=== PATIENT | male | born 1995 | race African-American/Black ===

== ENCOUNTER 2024-12-10 01:39 | Emergency (ER) | payer SELFPAY ==
[~2024-12-10] VITALS: Ht 172.7 cm; Wt 98.5 kg
[2024-12-10 01:44] VITALS: O2SAT 99
[2024-12-10] MEDS: METOCLOPRAMIDE HCL 10MG TABLET PO ONE (02:55)
[2024-12-10] MEDS: ACETAMINOPHEN 500MG TABLET PO ONE (02:55)
[2024-12-10 03:07] LABS: BASOPHILS % 0.9 % (0.0-2.0); EOSINOPHILS % 0.2 % (0.0-5.0); HEMATOCRIT. 46.7 % (42.0-52.0); HEMOGLOBIN. 15.2 g/dL (14.0-18.0); LYMPHOCYTES % 22.7 % (20.0-50.0); MEAN PLATELET VOLUME 10.6 fl (7.4-10.4); MONOCYTES % 8.1 % (2.0-8.0); NEUTROPHILS % 68.1 % (40.0-76.0); PLATELET 265 x1000/uL (130-400); RED BLOOD CELL COUNT 5.58 mill/uL (4.7-6.1); RED CELL DISTRIBUTION WIDTH 12.5 % (11.6-14.6)
[2024-12-10 03:18] LABS: CREATININE 1.2 mg/dL (0.6-1.3); UREA NITROGEN BLOOD 7 mg/dL (9-23)
[2024-12-10 03:19] LABS: TROPONIN I HIGH SENSITIVITY 6 ng/L (3.0-53)
[2024-12-10 03:20] LABS: ASPARTATE AMINOTRANSFERASE 19 IU/L (<34); BILIRUBIN DIRECT 0.5 mg/dL (<=3.0); BILIRUBIN TOTAL 1.7 mg/dL (0.1-1.0)
[2024-12-10 03:21] LABS: PROTEIN TOTAL 8.4 g/dL (6.0-8.3)
[2024-12-10] MEDS ORDERED: NAPR-1176 MT (04:06)
[2024-12-10 04:29] VITALS: BP 139/83; PULSE 94; RESP 18; TEMP 36.7; O2SAT 97
== END 2024-12-10 04:30 | disposition home or self-care (01) ==
LOC: ER 01:39
DX: R07.89 Other chest pain (principal); Z79.899 Other long term (current) drug therapy
CPT/HCPCS: 99285; 71045; 80076; 80048; 83690; 85025; 85379; 84484; 36415; 93005; J8597